=== PATIENT | female | born 1980 | race Hispanic/Latino ===

== ENCOUNTER 2023-06-13 08:19 | Emergency (ER) | payer SELFPAY ==
[2023-06-13 08:55] LABS: Absolute Lymphocytes (CBC) 1.5 K/uL (0.7-4.9); Hematocrit 41.4 % (36.0-45.0); Lymphocytes % 26.8 % (15.3-44.8); MCV 84.2 fL (80-100); MPV 7.9 fL (7.6-11.3); Platelets 228 thou/uL (152-406); RBC Red Blood Cell Count 4.92 M/uL (3.86-4.86)
[2023-06-13 09:15] LABS: ALT/SGPT 42 U/L (13-56); AST/SGOT 24 U/L (15-37); Albumin 3.9 g/dL (3.4-5.0); Alkaline Phosphatase 82 U/L (45-117); BUN Blood Urea Nitrogen 10 mg/dL (7-18); Bicarbonate 21 mEq/L (21-32); Bilirubin Direct 0.1 mg/dL (0-0.2); Bilirubin Indirect, Calculated 0.5 mg/dL (0.2-0.8); Bilirubin Total 0.6 mg/dL (0.2-1.0); Glomerular Filtration Rate 96 ml/min (=/>90); Glucose Level 128 mg/dL (74-106); Magnesium 1.9 mg/dL (1.6-2.4); Potassium 3.6 mEq/L (3.5-5.1); Protein, Total 7.4 g/dL (6.4-8.2); Sodium Level 137 mEq/L (136-145)
[2023-06-13] MEDS ORDERED: NA CHLORIDE 0.9% 1,000 ML ONE (09:15)
[2023-06-13] MEDS ORDERED: ONDANSETRON 4 MG/2 ML VIAL ONE (09:15)
[2023-06-13] MEDS ORDERED: MECLIZINE HCL 12.5 MG TAB ONE ×2 (09:15→10:39)
[2023-06-13 09:35] LABS: Troponin High Sensitivity < 3.0 pg/mL (<58.9)
[2023-06-13 10:57] LABS: Specific Gravity 1.013 (1.005-1.030); Urine Bacteria <20 /HPF (<20); Urine Bilirubin NEGATIVE (Negative); Urine Blood Negative (Negative); Urine Clarity Turbid (Clear); Urine Color Light-Yellow (Yellow); Urine Glucose NEGATIVE (Negative); Urine Mucus Slight /HPF (None Seen); Urine Protein NEGATIVE (Negative); Urine RBC <5 /HPF (None Seen); Urine Urobilinogen Normal (Normal); Urine pH 8.5 (5.0-7.0)
[2023-06-13 10:58] LABS: Specific Gravity 1.013 (1.005-1.030)
--- NOTE | 2023-06-13 11:09 | EDPHYS ---
Physician Documentation [facility] Name: Karma Deras Age: 42 yrs Sex: Female : 1980 Arrival Date: 06/13/2023 Time: 08:19 Bed 6 Private MD: ED Physician Ambrose Baker HPI: 06/13 09:07 This 42 yrs old Female presents to ER via Wheelchair with complaints of kb Nausea/Vomiting, Dizziness, Fever. 09:07 The patient presents with dizziness. Onset: The symptoms/episode began/occurred this kb morning. Context: occurred at home, occurred while the patient was getting up from bed, just prior to the episode the patient experienced no apparent symptoms. Modifying factors: The symptoms are alleviated by holding head still, the symptoms are aggravated by movement of head, changing position. Associated signs and symptoms: Pertinent positives: nausea, vomiting. Severity of symptoms: At their worst the symptoms were moderate in the emergency department the symptoms are unchanged. Patient's baseline: Neuro: alert and fully oriented, Motor: no deficits, Ambulation: walks without assistance, Speech: normal. The patient has not experienced similar symptoms in the past. The patient has not recently seen a physician. Pt reports she woke up with dizziness with movement of head or changing positions. States she the dizziness gets worse when she moves her eyes as well. Reports nausea and vomiting due to dizziness. . Historical: - Allergies: 08:31 No Known Allergies; iw - Home Meds: 08:31 None [Active]; iw - PMHx: 08: None; iw - PSHx: 08:31 None; iw - Immunization history:: Adult Immunizations unknown. - Social history:: Smoking status: . ROS: 09:01 Constitutional: Negative for fever, chills, and weight loss. kb 09:01 Abdomen/GI: Positive for nausea and vomiting, Negative for abdominal pain. 09:01 Neuro: Positive for dizziness. 09:01 All other systems are negative. Exam: 08:51 Constitutional: This is a well developed, well nourished patient who is awake, alert, kb and in no acute distress. Head/Face: Normocephalic, atraumatic. Eyes: Pupils equal round and reactive to light, extra-ocular motions intact. Lids and lashes normal. Conjunctiva and sclera are non-icteric and not injected. Cornea within normal limits. Periorbital areas with no swelling, redness, or edema. ENT: Moist Mucous membranes Cardiovascular: Regular rate and rhythm with a normal S1 and S2. No gallops, murmurs, or rubs. No pulse deficits. Respiratory: Respirations even and unlabored. No increased work of breathing. Talking in full sentences Abdomen/GI: Soft, non-tender. No distention Skin: Warm, dry with normal turgor. Normal color. MS/ Extremity: Pulses equal, no cyanosis. Neurovascular intact. Full, normal range of motion. Neuro: Awake and alert, GCS 15, oriented to person, place, time, and situation. Moves all extremities. Normal gait. 08:51 ECG was reviewed by the Attending Physician. Vital Signs: 08:30 BP 95 / 53; Pulse 83; Resp 19; Temp 97.3; Pulse Ox 100% on R/A; Weight 58.97 kg; Height iw 5 ft. 3 in. ; 08:52 BP 103 / 64 Supine; Pulse 80; vg1 08:54 BP 98 / 64 Sitting; Pulse 78; vg1 08:56 BP 103 / 72 Standing; Pulse 88; vg1 10:00 BP 112 / 74; Pulse 64; Resp 20; Pulse Ox 100% on R/A; vg1 11:00 BP 104 / 66; Pulse 67; Resp 16; Pulse Ox 100% on R/A; db 08:30 Body Mass Index 23.03 (58.97 kg, 160.02 cm) iw MDM: 08:25 Patient medically screened. kb 09:20 Differential diagnosis: cardiac arrhythmia, hyperventilation, hypovolemia, idiopathic kb dizziness, vertigo. Data reviewed: vital signs, nurses notes. 09:20 Test considered but Not performed: CT: CT head considered, but pt has no neurologic kb deficits. 11:08 Counseling: I had a detailed discussion with the patient and/or guardian regarding: the kb historical points, exam findings, and any diagnostic results supporting the discharge/admit diagnosis, lab results, the need for outpatient follow up, a family practitioner, to return to the emergency department if symptoms worsen or persist or if there are any questions or concerns that arise at home. 06/13 08:29 Order name: Basic Metabolic Panel; Complete Time: 09:47 kb 06/13 08:29 Order name: CBC with Diff; Complete Time: 09:00 kb 08 08:29 Order name: Hepatic Function; Complete Time: 09:47 kb 08 08:29 Order name: Magnesium; Complete Time: 09:47 kb 08 08:29 Order name: Test, Urine; Complete Time: 11:01 kb 08 08:29 Order name: Protime (+inr); Complete Time: 09:09 kb 08 08:29 Order name: Ptt, Activated; Complete Time: 09:09 kb 08 08:29 Order name: Troponin High Sensitivity; Complete Time: 09:47 kb 08 08:29 Order name: Urinalysis w/ reflexes; Complete Time: 11:01 kb 08 08:29 Order name: EKG; Complete Time: 08:30 kb 08 08:29 Order name: Cardiac monitoring; Complete Time: 08:59 kb 08 08:29 Order name: EKG - Nurse/Tech; Complete Time: 08:50 kb 08 08:29 Order name: IV Saline Lock; Complete Time: 08:59 kb 08 08:29 Order name: Labs collected and sent; Complete Time: 08:59 kb 08 08:29 Order name: NPO; Complete Time: 08:59 kb 08 08:29 Order name: O2 Per Protocol; Complete Time: 08:59 kb 08 08:29 Order name: O2 Sat Monitoring; Complete Time: 08:59 kb 08 08:29 Order name: Orthostatics; Complete Time: 08:59 kb EC:51 Rate is 79 beats/min. Rhythm is regular. QRS [place] is Normal. [place] interval is normal at kb 124 msec. QRS interval is normal at 82 msec. QT interval is normal at 481 msec. Administered Medications: 09:08 Drug: Ondansetron IVP 4 mg Route: IVP; Site: left antecubital; vg1 10:25 Follow up: Response: No adverse reaction vg1 09:08 Drug: NS 0.9% IV 1000 ml Route: IV; Rate: 1000 ml; Site: left antecubital; vg1 11:15 Follow up: Response: No adverse reaction; IV Status: Completed infusion; IV Intake: db 1000ml 09:10 Drug: Meclizine PO 25 mg Route: PO; vg1 10:25 Follow up: Response: No adverse reaction; No change in condition vg1 10:33 Drug: Meclizine PO 25 mg Route: PO; vg1 11:15 Follow up: Response: No adverse reaction db Disposition: 18:55 Co-signature as Attending Physician, Ambrose Baker MD I reviewed the patient's care rt provided by the Advanced Practice Provider and agree with the diagnosis and treatment plan. Disposition Summary: 06/13/23 11:08 Discharge Ordered Location: Home kb Condition: Stable kb Diagnosis - Vertigo kb Followup: kb - With: Emergency Department - When: As needed - Reason: Worsening of condition Followup: kb - With: Private Physician - When: 2 - 3 days - Reason: Recheck today's complaints, Continuance of care, Re-evaluation by your physician Discharge Instructions: - Discharge Summary Sheet kb - Vertigo, [id number] kb Forms: - Medication Reconciliation Form kb - Thank You Letter kb - Antibiotic Education kb - Prescription Opioid Use kb - Patient Portal Instructions kb Prescriptions: - ondansetron 4 mg Oral Tablet,disintegrating - take 1 tablet by ORAL route every 6 hours As needed; 12 tablet; Refills: 0, kb Product Selection Permitted - Meclizine 25 mg Oral Tablet - take 1 tablet by ORAL route every 8 hours As needed; 30 tablet; Refills: 0, kb Product Selection Permitted Signatures: Dispatcher [employer] Nathalia Smith, JOLEEN ROTHMANP-Yaritza Santos, RN SHEEBA iw Colleen Kyle RN RN vg1 Shasha Webster RN RN Ambrose Boles MD MD rt
--- NOTE | 2023-06-13 11:09 | ER ---
Nurse's Notes [facility] Name: Karma Deras Age: 42 yrs Sex: Female : 1980 Arrival Date: 06/13/2023 Time: 08:19 Bed 6 Private MD: Diagnosis: Vertigo Presentation: 06/13 08:30 Chief complaint: Patient states: woke up with n/v , dizziness, no fever. Ebola Screen: iw Patient negative for fever greater than or equal to 101.5 degrees Fahrenheit, and additional compatible Ebola Virus Disease symptoms Patient denies exposure to infectious person. Patient denies travel to an Ebola-affected area in the 21 days before illness onset. No symptoms or risks identified at this time. Initial Sepsis Screen: Does the patient meet any 2 criteria? No. Patient's initial sepsis screen is negative. Does the patient have a suspected source of infection? No. Patient's initial sepsis screen is negative. Risk Assessment: Do you want to hurt yourself or someone else? Patient reports no desire to harm self or others. Onset of symptoms was June 13, 2023. 08:30 Method Of Arrival: Wheelchair iw 08:30 Acuity: THAIS 3 iw 08:50 Coronavirus screen: Client presents with at least one sign or symptom that may indicate iw coronavirus-19. Historical: - Allergies: 08:31 No Known Allergies; iw - Home Meds: 08:31 None [Active]; iw - PMHx: 08:31 None; iw - PSHx: 08:31 None; iw - Immunization history:: Adult Immunizations unknown. - Social history:: Smoking status: . Screenin:01 [facility] ED Fall Risk Assessment (Adult) History of falling in the last 3 months, vg1 including since admission. Abuse screen: Denies threats or abuse. Denies injuries from another. Nutritional screening: No deficits noted. Tuberculosis screening: No symptoms or risk factors identified. Assessment: 09:01 General: Appears in no apparent distress. uncomfortable, Behavior is cooperative. Pain: vg1 Complains of pain in abdomen. Neuro: Level of Consciousness is awake, alert, obeys commands, Oriented to person, place, time, situation. Cardiovascular: Patient's skin is warm and dry. Respiratory: Airway is patent Respiratory effort is even, labored. GI: Abdomen is flat, distended, Last BM was June 13, 2023. Reports nausea, vomiting, since this morning. : No signs and/or symptoms were reported regarding the genitourinary system. Derm: Skin is pink, warm \T\ dry. Musculoskeletal: Circulation, motion, and sensation intact. 10:25 Reassessment: Patient appears in no apparent distress at this time. No changes from vg1 previously documented assessment. Patient and/or family updated on plan of care and expected duration. Pain level reassessed. Patient is alert, oriented x 3, equal unlabored respirations, skin warm/dry/pink. 10:26 Reassessment: Received VO from [employer] to administer Meclizine 25 mg PO. vg1 10:42 Reassessment: patient ambulatory to restroom. db 11:15 Reassessment: Patient appears in no apparent distress at this time. Patient and/or db family updated on plan of care and expected duration. Pain level reassessed. Patient is alert, oriented x 3, equal unlabored respirations, skin warm/dry/pink. Vital Signs: 08:30 BP 95 / 53; Pulse 83; Resp 19; Temp 97.3; Pulse Ox 100% on R/A; Weight 58.97 kg; Height iw 5 ft. 3 in. ; 08:52 BP 103 / 64 Supine; Pulse 80; vg1 08:54 BP 98 / 64 Sitting; Pulse 78; vg1 08:56 BP 103 / 72 Standing; Pulse 88; vg1 10:00 BP 112 / 74; Pulse 64; Resp 20; Pulse Ox 100% on R/A; vg1 11:00 BP 104 / 66; Pulse 67; Resp 16; Pulse Ox 100% on R/A; db 08:30 Body Mass Index 23.03 (58.97 kg, 160.02 cm) iw ED Course: 08:23 Patient arrived in ED. mg5 08:25 Nath[facility] Carrizales [facility]C [facility] kb 08:25 Ambrose Baker MD is Attending Physician. kb 08:31 Triage completed. iw 08:32 Arm band placed on. iw 08:37 Colleen Kyle, SHEEBA is Primary Nurse. vg1 08:44 Inserted saline lock: 20 gauge in right antecubital area, using aseptic technique. iw 09:01 Patient has correct armband on for positive identification. Placed in gown. Bed in low vg1 position. Call light in reach. Side rails up X2. Adult w/ patient. Client placed on continuous cardiac and pulse oximetry monitoring. NIBP monitoring applied. 09:01 No provider procedures requiring assistance completed. vg1 11:23 Provided Education on: DISCHARGE. db 11:23 IV discontinued, intact, bleeding controlled, No redness/swelling at site. db Administered Medications: 09:08 Drug: Ondansetron IVP 4 mg Route: IVP; Site: left antecubital; vg1 10:25 Follow up: Response: No adverse reaction vg1 09:08 Drug: NS 0.9% IV 1000 ml Route: IV; Rate: 1000 ml; Site: left antecubital; vg1 11:15 Follow up: Response: No adverse reaction; IV Status: Completed infusion; IV Intake: db 1000ml 09:10 Drug: Meclizine PO 25 mg Route: PO; vg1 10:25 Follow up: Response: No adverse reaction; No change in condition vg1 10:33 Drug: Meclizine PO 25 mg Route: PO; vg1 11:15 Follow up: Response: No adverse reaction db Medication: 09: VIS not applicable for this client. vg1 Intake: 11:15 IV: 1000ml; Total: 1000ml. db Outcome: 11:08 Discharge ordered by . kb 11:23 Discharged to home via wheelchair, with family. db 11:23 Condition: stable 11:23 Discharge instructions given to patient, family, Instructed on discharge instructions, follow up and referral plans. Prescriptions given X 2. 11:24 Patient left the ED. db Signatures: Nathalia Carrizales, JOLEEN CABRERA-Yaritza Santos, Colleen Carrillo RN RN RN vg1 Shasha Webster, RN RN Carol Benavidez mg5 Corrections: (The following items were deleted from the chart) 08:50 08:30 Pulse 83bpm; Resp 19bpm; Pulse Ox 100% RA; Temp 97.3F; 58.97 kg; Height 5 ft. 3 iw in.; BMI: 23.0; iw
[2023-06-13 11:30] VITALS: TEMP 97.3; O2SAT 100
[2023-06-13 11:38] VITALS: BP 104/66
--- NOTE | 2023-06-14 13:03 | EKG ---
Test Date: 2023-06-13 Test Time: 08:43:18 Battery Stacker: ANURAG MEASUREMENT RESULTS: Intervals: Rate: 79 IL: 124 QRSD: 82 QT: 420 QTc: 481 Elizabeth: P: 42 IL: 124 QRS: 78 T: 55 INTERPRETIVE STATEMENTS: Normal sinus rhythm Prolonged QT Abnormal ECG No previous ECG available for comparison Electronically Signed On 06-14-23 13:02:18 CDT by Jono Mirza
== END 2023-06-13 11:24 | disposition home or self-care (01) ==
LOC: ER 08:19
DX: R42 Dizziness and giddiness (principal); R11.2 Nausea with vomiting, unspecified
CPT/HCPCS: 36415; 80048; 80076; 81001; 81025; 83735; 84484; 85025; 85610; 85730; 93005; 96361; 96374; 99284; J2405; J7030; J8597